=== PATIENT | male | born 1975 | race Caucasian/White ===

== ENCOUNTER 2020-04-17 08:00 | Emergency (ER) | payer OTHER ==
[2020-04-17] MEDS ORDERED: Cyclobenzaprine 10 MG Tab PO ONE (08:32)
[2020-04-17] MEDS ORDERED: Ketorolac 60 MG/2 ML SDV IM ONE (08:32)
--- NOTE | 2020-04-17 08:35 | EDM.PDOC ---
ED HPI GENERAL MEDICAL PROBLEM - General Chief Complaint: Back Pain or Injury Stated Complaint: lower back pain Time Seen by Provider: 04/17/20 08:30 Source of Information: Reports: Patient, RN Notes Reviewed History Limitations: Reports: No Limitations - History of Present Illness INITIAL COMMENTS - FREE TEXT/NARRATIVE: 44-year-old gentleman presents emergency department a complaint of low back pain, he does not recall any particular injury just awoke this morning low back pain predominantly on the right side there is been no loss of bowel or no fevers Lower Back Pain Score (Numeric/FACES): 8 - Related Data Allergies Allergy/AdvReac Type Severity Reaction Status Date / Time No Known Allergies Allergy Verified 04/17/20 08:13 Home Meds: Home Meds Aspirin 81 mg PO DAILY 04/17/20 [History] Lisinopril/Hydrochlorothiazide [Lisinopril-Hctz 20-25 mg Tab] 1 tab PO DAILY 04/17/20 [History] atorvaSTATin [Lipitor] 20 mg PO DAILY 04/17/20 [History] glipiZIDE [Glipizide ER] 2.5 mg PO DAILY 04/17/20 [History] metFORMIN HCl [Metformin HCl ER] 500 mg PO DAILY 04/17/20 [History] Past Medical History Cardiovascular History: Reports: Afib, Hypertension Genitourinary History: Reports: Renal Calculus Endocrine/Metabolic History: Reports: Diabetes, Type II - Infectious Disease History Infectious Disease History: Reports: Chicken Pox Social & Family History - Tobacco Use Smoking Status *Q: Never Smoker - Caffeine Use Caffeine Use: Reports: Soda - Recreational Drug Use Recreational Drug Use: No ED ROS GENERAL - Review of Systems Review Of Systems: See Below Constitutional: Reports: No Symptoms GI/Abdominal: Reports: No Symptoms Musculoskeletal: Reports: Back Pain Neurological: Reports: No Symptoms ED EXAM,LOWER BACK PAIN/INJURY - Physical Exam Exam: See Below Exam Limited By: No Limitations General Appearance: Alert, Mild Distress Respiratory/Chest: No Respiratory Distress Back Exam: Normal Inspection, Decreased Range of Motion, Muscle Spasm, Paraspinal Tenderness. No: CVA Tenderness (R), CVA Tenderness (L), Vertebral Tenderness Course - Vital Signs Last Recorded V/S: Last Vital Signs Temp 96.8 F L 04/17/20 08:14 Pulse 100 04/17/20 08:14 Resp 16 04/17/20 08:14 BP 168/100 H 04/17/20 08:14 Pulse Ox 99 04/17/20 08:14 - Orders/Labs/Meds Meds: Medications Discontinued Medications Generic Name Dose Route Start Last Admin Trade Name Mychal PRN Reason Stop Dose Admin Cyclobenzaprine HCl 10 mg 04/17/20 08:32 04/17/20 08:44 Flexeril PO 04/17/20 08:33 10 mg ONETIME ONE Administration Hydromorphone HCl 1 mg 04/17/20 09:19 04/17/20 09:44 Dilaudid IM 04/17/20 09:20 1 mg ONETIME ONE Administration Ketorolac Tromethamine 60 mg 04/17/20 08:32 04/17/20 08:44 Toradol IM 04/17/20 08:33 60 mg ONETIME ONE Administration Departure - Departure Time of Disposition: 10:11 Disposition: Home, Self-Care 01 Condition: Fair Clinical Impression: Low back pain Qualifiers: Chronicity: acute Back pain laterality: right Sciatica presence: without sciatica Qualified Code(s): M54.5 - Low back pain - Discharge Information Instructions: Acute Back Pain, Adult Referrals: PCP,None [Primary Care Provider] - Forms: ED Department Discharge Additional Instructions: Use ibuprofen for baseline pain control use hydrocodone for breakthrough pain, use Flexeril as needed for muscle relaxant please follow-up with your primary care upon return home for further evaluation, Sepsis Event Note (ED) - Evaluation Sepsis Screening Result: No Definite Risk - Focused Exam Vital Signs: Vital Signs Temp Pulse Resp BP Pulse Ox 04/17/20 08:14 96.8 F L 100 16 168/100 H 99 04/17/20 08:12 96.8 F L 100 16 168/100 H 99 - Assessment/Plan Plan: Assessment Acuity = acute Site and laterality = low back pain Etiology = unknown Manifestations = none Location of injury = Home Lab values = none Plan Elected to treat empirically combination Toradol, Flexeril and hydromorphone he did receive some relief prescription written for hydrocodone 5/325 1 tab p.o. 3 times daily PRN total #12 as well as Flexeril 10 mg 1 tab p.o. 3 times daily PRN total #15 he will follow-up with his primary care upon return home for further evaluation This note was dictated using dragon voice recognition software please call with any questions on syntax or grammar.
[2020-04-17] MEDS ORDERED: HYDROmorphone 1 MG/ML Syringe IM ONE (09:19)
== END 2020-04-17 10:16 | disposition home or self-care (01) ==
LOC: JP.ED 08:00
DX: M54.5 Low back pain (principal); E11.9 Type 2 diabetes mellitus without complications; I10 Essential (primary) hypertension; I48.91 Unspecified atrial fibrillation; Z79.84 Long term (current) use of oral hypoglycemic drugs; Z79.82 Long term (current) use of aspirin; Z79.899 Other long term (current) drug therapy
CPT/HCPCS: 96372; 99283; A9270; J1170; J1885

== ENCOUNTER 2022-06-18 14:33 | Emergency (ER) | payer OTHER ==
[2022-06-18] MEDS ORDERED: Ondansetron 4 MG/2 ML SDV IVPUSH ONE (15:04)
[2022-06-18] MEDS ORDERED: HYDROmorphone 1 MG/ML Syringe IVPUSH ONE ×2 (15:04→15:34)
[2022-06-18] MEDS ORDERED: Ketorolac 30 MG/ML SDV IVPUSH ONE (15:06)
[2022-06-18] MEDS ORDERED: Sodium Chloride 0.9% 1,000 ML IV SCH (15:15)
[2022-06-18] MEDS ORDERED: Iopamidol 612 MG/ML 100 ML Bottle IV SCH (16:00)
[2022-06-18] MEDS ORDERED: Sodium Chloride 0.9% 75 ML IV SCH (16:00)
[2022-06-18] MEDS ORDERED: LORazepam 2 MG/ML SDV IVPUSH ONE (16:03)
[2022-06-18] MEDS ORDERED: Morphine 2 MG/ML SYRINGE IVPUSH ONE (17:24)
== END 2022-06-18 19:25 | disposition home or self-care (01) ==
LOC: JP.ED 14:33
DX: R10.31 Right lower quadrant pain (principal); I10 Essential (primary) hypertension; E11.9 Type 2 diabetes mellitus without complications; Z79.899 Other long term (current) drug therapy; Z79.82 Long term (current) use of aspirin; Z79.84 Long term (current) use of oral hypoglycemic drugs
CPT/HCPCS: 36415; 74177; 80048; 81001; 85025; 96361; 96374; 96375; 96376; 99284; J1170; J1885; J2060; J2270; J2405; J3490; J7030; Q9967